=== PATIENT | female | born 1980 | race Caucasian/White ===

== ENCOUNTER → 2021-01-28 12:16 | Outpatient (CLI) | payer BC, SELFPAY ==
--- NOTE | ~2021-01-28 | MM_ITS ---
EXAMINATION: MM screening [facility] BI w tiny HISTORY: Screening mammogram, patient reports history of breast tissue in the right axillary region s cesar puberty TECHNIQUE: Craniocaudal and mediolateral oblique 3-D tomosynthesis images were obtained and synthetic 2-D images were generated. CAD analysis was submitted and interpreted. COMPARISON: None, baseline BREAST PARENCHYMAL COMPOSITION: The breasts are extremely dense, which lowers the sensitivity of mamm ography. FINDINGS: There is no evidence of suspicious mass, calcification, or architectural distortion to sugg est malignancy in either breast. Focal asymmetry in the region of the right axilla has the appearance of accessory breast tissue without focal mass. IMPRESSION: 1. No mammographic evidence of malignancy. 2. Recommend routine screening mammography in one year. BI-RADS Category 2: Benign finding(s). Reviewed, dictated and finalized at location A. ENGRAVER
== END ==
PROVIDERS: PCP Obstetrics & Gynecology; Visit Provider Obstetrics & Gynecology
DX: Z12.31 Encounter for screening mammogram for malignant neoplasm of breast (principal)
CPT/HCPCS: 77063; 77067

== ENCOUNTER → 2022-01-09 11:44 | Outpatient (CLI) | payer BC, SELFPAY ==
--- NOTE | ~2022-01-09 | US_ITS ---
US axilla RT 01/09/2022 12:00 Indication: Palpable right axillary area with tenderness Procedure: High-resolution ultrasound of the right axilla in the area of palpable concern Comparison: No prior studies Findings: There is a cluster of cysts in the right axilla in the area of palpable concern on the larg est measuring 7 x 6 x 5 mm. Impression: 1: Cluster of cysts in the area of palpable concern, largest measuring 7 mm. BI-RADS CATEGORY 2 - BENIGN FINDINGS Reviewed, dictated and finalized at location A. Impression: 1: Cluster of cysts in the area of palpable concern, largest measuring 7 mm. BI-RADS CATEGORY 2 - BENIGN FINDINGS
== END ==
PROVIDERS: PCP Obstetrics & Gynecology; Visit Provider Obstetrics & Gynecology
DX: R59.0 Localized enlarged lymph nodes (principal)
CPT/HCPCS: 76882

== ENCOUNTER → 2022-04-06 10:20 | Outpatient (CLI) | payer BC, SELFPAY ==
--- NOTE | ~2022-04-06 | MM_ITS ---
EXAMINATION: MM screening [facility]rett BI w tiny HISTORY: Screening TECHNIQUE: Craniocaudal and mediolateral oblique 3-D tomosynthesis images were obtained and synthetic 2-D images were generated. CAD analysis was submitted and interpreted. COMPARISON: 01/28/2021 BREAST PARENCHYMAL COMPOSITION: The breasts are extremely dense, which lowers the sensitivity of mamm ography FINDINGS: There is no evidence of suspicious mass, calcification, or architectural distortion to sugg est malignancy in either breast. There has been no suspicious interval change. IMPRESSION: 1. No mammographic evidence of malignancy. 2. Recommend routine screening mammography in one year. BI-RADS Category 1: Negative Reviewed, dictated and finalized at location A. [employer]
== END ==
PROVIDERS: PCP Obstetrics & Gynecology; Visit Provider Obstetrics & Gynecology
DX: Z12.31 Encounter for screening mammogram for malignant neoplasm of breast (principal)
CPT/HCPCS: 77063; 77067

== ENCOUNTER 2023-05-20 13:26 | Outpatient (CLI) | payer BC, SELFPAY ==
--- NOTE | ~2023-05-20 | MM_ITS ---
EXAMINATION: MM screening brett BI w tiny HISTORY: Screening mammogram TECHNIQUE: Craniocaudal and mediolateral oblique 3-D tomosynthesis images were obtained and synthetic 2-D images were generated. CAD analysis was submitted and interpreted. COMPARISON: 04/06/2022, 01/28/2021 bilateral screening mammogram examinations BREAST PARENCHYMAL COMPOSITION: The breasts are extremely dense, which lowers the sensitivity of mamm ography. FINDINGS: Bilateral mammographic asymmetries. Possible irregular mass in the anterior central right b reast. The extremely dense fibroglandular stroma may obscure masses anywhere in either breast. Bilate ral diagnostic mammogram and bilateral complete breast ultrasound examination is recommended. IMPRESSION: 1. Bilateral mammographic asymmetries and extremely dense stroma 2. Bilateral diagnostic mammography and bilateral breast complete ultrasound examination are recommen ded BI-RADS Category 0: Incomplete: Needs additional imaging evaluation. Reviewed, dictated and finalized at location A. IMPRESSION: 1. Bilateral mammographic asymmetries and extremely dense stroma 2. Bilateral diagnostic mammography and bilateral breast complete ultrasound ex amination are recommended BI-RADS Category 0: Incomplete: Needs additional imaging evaluation.
== END 2023-05-20 13:27 ==
LOC: MICIMG 13:27
PROVIDERS: PCP Obstetrics & Gynecology; Visit Provider Obstetrics & Gynecology
DX: Z12.31 Encounter for screening mammogram for malignant neoplasm of breast (principal); R92.8 Other abnormal and inconclusive findings on diagnostic imaging of breast
CPT/HCPCS: 77063; 77067

== ENCOUNTER 2023-07-01 08:52 | Outpatient (CLI) | payer BC, SELFPAY ==
--- NOTE | ~2023-07-01 | MMUS_ITS ---
EXAMINATION: MM diagnostic brett BI w tiny, US breast BI complete HISTORY: Bilateral mammographic asymmetries and extremely dense stroma reported on May 20, 2023 scr eening mammogram TECHNIQUE: Additional 3-D tomosynthesis images of both breasts were performed and synthetic 2-D image s were generated. CAD analysis was submitted and interpreted. High resolution complete bilateral rag[facility] ultrasound examination including all 4 quadrants and subareolar area of each breast was performed. COMPARISON: 05/20/2023, 04/06/2022, 01/28/2021 bilateral screening mammogram examinations BREAST PARENCHYMAL COMPOSITION: The breasts are extremely dense, which lowers the sensitivity of mamm ography. FINDINGS: MAMMOGRAPHIC FINDINGS: There is extremely dense fibroglandular stroma, which may obscure masses. No suspicious mass, archite ctural distortion, malignant calcification, skin thickening or retraction is evident. ULTRASOUND: No suspicious solid mass lesion or shadowing of either breast is evident. There are bilat eral breast cysts including: Right breast: 12:00 5 cm from nipple: 8 x 10 x 14 mm simple cyst 10:00 6 cm from nipple: 11 x 7.6 x 11 mm simple cyst 10:00 5 cm from nipple: 7 x 8.4 mm and 7.7 x 12 mm simple cysts 10:00 4 cm from nipple: 4.7 x 6.5 mm cyst Subareolar area: 6 x 11 mm cyst Left breast: 1:00 3 cm from nipple: 4 x 6.7 mm cyst and 2.7 x 4.7 mm cyst 3:00 7 cm from nipple: 5 x 10 mm cyst 3:00 5 cm from nipple: Adjacent 3.7 mm cysts 4:00 5 cm from nipple: Septated approximately 4 x 8 mm cyst 6:00 2 cm from nipple: 5.3 x 7.3 mm cyst 9:00 subareolar area: Septated 5.1 x 6.4 mm cyst IMPRESSION: 1. Bilateral benign cysts; no evidence of malignancy 2. Routine annual mammographic screening is recommended BI-RADS Category 2: Benign finding(s). Reviewed, dictated and finalized at location C. IMPRESSION: 1. Bilateral benign cysts; no evidence of malignancy 2. Routine annual mammographic screening is recommended BI-RADS Category 2: Benign finding(s).
== END 2023-07-01 08:53 ==
LOC: MICIMG 08:53
PROVIDERS: PCP Obstetrics & Gynecology; Visit Provider Obstetrics & Gynecology
DX: R92.8 Other abnormal and inconclusive findings on diagnostic imaging of breast (principal)
CPT/HCPCS: 76641; 77062; 77066; G0279

== ENCOUNTER 2024-09-22 15:48 | Outpatient (CLI) | payer BC, SELFPAY ==
--- NOTE | ~2024-09-22 | MM_ITS ---
EXAMINATION: MM screening [facility] BI w tiny INDICATION: Asymptomatic, referred for screening mammogram COMPARISON: 07/01/2023 through 01/28/2021 TECHNIQUE: Digital Breast Tomosynthesis CC, MLO views of Both breasts were obtained with computer-ai ded detection to assist in interpretation of the study. FINDINGS: The breasts are heterogeneously dense, which may obscure small masses. There is a circumscribed mass in the outer central left breast centered at 4.3 cm posterior to the ni pple. Elsewhere, there are no mammographic features of malignancy. IMPRESSION: 1. Left breast Mass. 2. No evidence of malignancy in the Right breast. RECOMMENDATION: Left breast Diagnostic mammogram with true lateral, appropriate spot compression views and correlativ e left breast ultrasound. BI-RADS Category 0: Incomplete: Needs additional imaging evaluation. Reviewed, dictated and finalized at location B. IMPRESSION: 1. Left breast Mass. 2. No evidence of malignancy in the Right breast. RECOMMENDATION: Left breast Diagnostic mammogram with true lateral, appropriate spot compressio n views and correlative left breast ultrasound. BI-RADS Category 0: Incomplete: Needs additional imaging evaluation.
== END 2024-09-22 15:49 | disposition home or self-care (01) ==
PROVIDERS: PCP Obstetrics & Gynecology; Visit Provider Obstetrics & Gynecology
DX: Z12.31 Encounter for screening mammogram for malignant neoplasm of breast (principal); R92.8 Other abnormal and inconclusive findings on diagnostic imaging of breast
CPT/HCPCS: 77063; 77067

== ENCOUNTER 2024-10-18 09:27 | Outpatient (CLI) | payer BC, SELFPAY ==
--- NOTE | ~2024-10-18 | MMUS_ITS ---
EXAMINATION: MM diagnostic brett LT w tiny, US breast LT limited HISTORY: Follow-up left breast mass TECHNIQUE: Additional 3-D tomosynthesis images of the left breast were performed and synthetic 2-D im ages were generated. CAD analysis was submitted and interpreted. High resolution Limited left breast ultrasound was performed. COMPARISON: Comparison to multiple prior studies sequentially, with oldest reviewed study dated 01/28/2021. BREAST PARENCHYMAL COMPOSITION: Dense: The breasts are extremely dense, which lowers the sensitivity of mammography. FINDINGS: MAMMOGRAPHIC FINDINGS: There is a focal mass involving the lateral aspect of the left breast at approximately 3:00 position, middle third. This mass is obscured by dense fibroglandular tissue. ULTRASOUND: Limited left breast ultrasound: Multiple left breast cysts accounting for mammographic abnormality. A t 3:00 there is a cluster of cysts, largest measuring approximately 9 mm. At 1:00, 1 cm from the nipp le there is a 12 mm cyst. No suspicious sonographic abnormalities to suggest malignancy. IMPRESSION: 1. No evidence for malignancy in the left breast. 2. Routine yearly screening mammogram and regular clinical breast examination are recommended. BI-RADS Category 2: Benign finding(s). Reviewed, dictated and finalized at location A. IMPRESSION: 1. No evidence for malignancy in the left breast. 2. Routine yearly screening mammogram and regular clinical breast examination a re recommended. BI-RADS Category 2: Benign finding(s).
== END 2024-10-18 09:28 | disposition home or self-care (01) ==
LOC: ANHIMG 09:32
PROVIDERS: PCP Obstetrics & Gynecology; Visit Provider Obstetrics & Gynecology
DX: R92.8 Other abnormal and inconclusive findings on diagnostic imaging of breast (principal)
CPT/HCPCS: 76642; 77061; 77065; G0279